=== PATIENT | female | born 1970 | race Caucasian/White ===

== ENCOUNTER → 2016-12-28 11:21 | Outpatient (CLI) | payer MEDICAID ==
[~2016-12-28] VITALS: Ht 152.4 cm; Wt 59.1 kg
--- NOTE | ~2016-12-28 | HEMODYNAMI ---
PATIENT:ALF FARRAR MEDICAL RECORD: [id number] : 68 LOCATION:[facility] ADMISSION DATE: 12/28/16 Generatedon:12/28/201615:21 Patient name: ALF FARRAR Patient #: [id number] SSN: : 1970 Date of study: 12/28/2016 Page: Of Hemodynamic Procedure Report Patient Data Patient Demographics Procedure consent was obtained First Name: ALF Gender: Female Last Name: CHARAN : 1970 Patient #: [id number] Age: 46 year(s) Race: Unknown Additional ID: [id number] Contact details [address]: [address] [place] [address] State: [place] City: [place] Zip code: [address] Past Medical History Allergies Allergen Reaction Date Comments Reported Other allergy 12/28/2016 PCN Admission Admission Data Admission Date: 12/28/2016 Admission Time: 11:21 Height (in.): 62 BSA: 1.6 (m2) Height (cm.): 157.48 BMI: 23.96 (kg/m2) Weight (lbs.): 131 Weight (kg.): 59.42 Procedure Procedure Types Cath Procedure Diagnostic Procedure C [facility] w/Coronaries PCI Procedure Coronary Stent Initial Miscellaneous Procedures Moderate Sedation up to 15 minutes Peripheral Cath Diagnostic Procedure Cath Peripheral Sldwg-Wouqyfc-Wmu-Off Procedure Description Procedure Date Procedure Date: 12/28/2016 Procedure Start Time: 14:57 Procedure End Time: 15:20 Procedure Staff Name Function Sukhdev Vidal MD Performing Physician Joie Acosta RT Scrub Jenn Lui RN Nurse Elana Ndiaye RT Monitor Procedure Data Cath Procedure Fluoroscopy Diagnostic fluoroscopy Total fluoroscopy Time: 4.9 time: 4.9 min min Diagnostic fluoroscopy Total fluoroscopy dose: 538 dose: 538 mGy mGy Contrast Material Contrast Material Type Amount (ml) Isovue 300 217 Entry Location Entry Primary Successful Side Size Upsize Upsize Entry Closure Succes sful Closure Location (Fr) 1 (Fr) 2 (Fr) Remarks Device Remarks Femoral Right 5 Fr 6 Fr Exoseal artery Short Estimated blood loss: 10 ml Diagnostic catheters Device Type Used For End Catheter Placement Cordis 5Fr JL 4.0 Procedure Catheter (MP) Cordis 5Fr 3DRC Catheter Procedure (MP) Cordis 5Fr Pigtail Ventriculography Catheter (MP) Procedure Complications No complications Procedure Medications Medication Administration Route Dosage Oxygen NC 2 l/min Heparin Flush Bag added to field 2 bags (1000units/500ml NS) Lidocaine 2% added to field 20 Fentanyl I.V. 50 mcg Versed I.V. 1 mg Fentanyl I.V. 25 mcg Versed I.V. 0.5 mg Fentanyl I.V. 25 mcg Versed I.V. 0.5 mg Fentanyl I.V. 50 mcg Versed I.V. 1 mg Fentanyl I.V. 50 mcg Versed I.V. 1 mg Versed I.V. 1 mg Versed I.V. 0.5 mg Versed I.V. 0.5 mg Heparin Bolus I.V. 4000 units Hemodynamics Rest BSA: 1.6 (m2) O2 Consumption: Estimated: 161.84 (ml/min) O2 Consumption indexed: Estimated:101.15 (ml/min/m) Heart Rate: 76 (bpm) Pressure Samples Time Site Value (mmHg) Purpose Heart Use Rate(bpm) 15:03 LV 124/8,10 Snapshot 90 15:03 LV 86/-38,-11 EDP 84 15:04 AO 109/61(83) Pullback 86 15:04 LV 114/11,14 Pullback 86 Gradients Valve Time Site 1 Site 2 Mean SEP/DFP Peak To Heart Use (mmHg) (sec/min) Peak Rate (mmHg) (bpm) Aortic 15:04 LV AO 10 11 5 86 114/11,14 109/61(83) Calculations Valve P-P Mean Valve Index Valve Source Name Gradient Area Flow (cm2) Aortic 5 10 5 10 Snapshots Pre Cath Intra NCS Post Cath Vital Signs Time Heart Resp SPO2 NIBP (mmHg) Rhythm Pain Sedation Rate (ipm) (%) Status Level (bpm) 14:40:56 76 16 100 144/76(116) NSR 0 (11) 10(A) , No pain 14:45:12 77 17 100 141/73(108) NSR 0 (11) 10(A) , No pain 14:49:24 84 18 99 125/69(103) NSR 0 (11) 9(A) , No pain 14:53:30 80 16 99 123/79(101) NSR 0 (11) 9(A) , No pain 14:57:40 72 10 99 120/65(84) NSR 0 (11) 9(A) , No pain 15:01:50 78 22 97 118/63(91) NSR 0 (11) 9(A) , No pain 15:06:00 93 16 98 115/64(85) NSR 0 (11) 9(A) , No pain 15:10:08 90 26 99 115/59(84) NSR 0 (11) 9(A) , No pain 15:14:18 87 16 99 103/57(82) NSR 0 (11) 9(A) , No pain 15:19:17 73 17 99 135/65(91) NSR 0 (11) 9(A) , No pain Medications Time Medication Route Dose Verified Delivered Reason Notes Effectiveness by by 14:42:23 Oxygen NC 2 Jenn Jenn used for l/min Lui Lui quality control coordinator RN 14:42:31 Heparin Flush added 2 Jenn Jenn used for Bag to bags Lui Lui procedure (1000units/500ml RN RN NS) 14:42:38 Lidocaine 2% added 20ml Jenn Jenn used for to vial Lui Lui procedure RN RN 14:46:15 Fentanyl I.V. 50 Jenn Jenn for sedation mcg Hu Lui RN RN 14:46:24 Versed I.V. 1 mg Jenn Jenn for sedation Hu Lui RN RN 14:48:20 Fentanyl I.V. 25 Jenn Jenn for sedation mcg Hu Lui RN RN 14:48:26 Versed I.V. 0.5 Jenn Ejnn for sedation mg Hu Lui RN RN 14:50:53 Fentanyl I.V. 25 Jenn Jenn for sedation mcg Hu Lui RN RN 14:50:56 Versed I.V. 0.5 Jenn Jenn for sedation mg Hu Lui RN RN 14:55:39 Fentanyl I.V. 50 Jenn Jenn for sedation mcg Hu Lui RN RN 14:55:43 Versed I.V. 1 mg Jenn Jenn for sedation Hu Lui RN, RN 14:58:59 Fentanyl I.V. 50 Jenn Jenn for sedation mcg Hu Lui RN RN 14:59:02 Versed I.V. 1 mg Jenn Jenn for sedation Hu Lui RN RN 15:01:12 Versed I.V. 1 mg Jenn Jenn for sedation Hu Lui RN RN 15:07:29 Versed I.V. 0.5 Jenn Jenn for sedation mg Hu Lui RN RN 15:11:47 Versed I.V. 0.5 Jenn Jenn for sedation mg Hu Lui RN RN 15:12:39 Heparin Bolus I.V. 4000 Jenn Jenn for units Hu Lui anticoagulation RN mill oiler Log Time Note 14:31:28 Patient Height : 157.48 cm 14:31:34 Patient Weight : 59.42 kg 14:32:06 Diagnostic Cath status Elective 14:32:09 Jenn Lui RN sent for patient. Start room use. 14:32:11 Time tracking: Regular hours 14:32:17 Plan of Care:Hemodynamics will remain stable., Cardiac rhythm will remain stable., Comfort level will be maintained., Respiratory function will remain adequate., Patient/ family verbilizes understanding of procedure., Procedure tolerated without complication., Recovers from procedure without complications.. 14:32:25 Patient received from Pre/Post Procedure Room to [facility] 2 Alert and oriented. Tansferred to table in Supine position. 14:32:26 Warm blankets applied, and amarilis hugger turned on for patient comfort. 14:32:27 Correct patient and procedure confirmed by team. 14:32:30 Signed procedure consent form obtained from patient. 14:32:43 H&P Date Dictated: 11/26/2016 Within 30 days and on chart., H&P Addendum completed by physician on day of procedure. (MUST COMPLETE FOR ALL OUTPATIENTS). 14:32:46 Pre-procedure instructions explained to patient. 14:32:49 Family in waiting room. 14:32:51 Patient NPO since Midnight. 14:33:07 Patient allergic to Other allergyPCN 14:39:50 ECG and BP/O2 sat monitors applied to patient. 14:39:50 Vital chart was started 14:39:54 Baseline sample Acquired. 14:39:58 Rhythm: sinus rhythm 14:39:59 Full Disclosure recording started 14:40:14 Is the patient allergic to Iodine/contrast media? No. 14:40:15 Is patient on blood thinner?Yes 14:40:18 ACC The patient was administered the following blood thiners within the last 24 hours: ACCAspirin, ACCPlavix 14:40:21 Patient diabetic? No. 14:40:27 Snore? Yes 14:40:28 Sleep apnea? No 14:40:34 Dentures? No ? 14:40:40 Patient pain scale 0/10 ?. 14:40:46 IV patent on arrival in left hand with 0.9% NaCl at [facility]. 14:40:53 Lab results completed and on chart. 14:40:56 Right groin area was prepped with chlora-prep and draped in sterile fashion 14:41:04 Alarms reviewed by RMorro N. 14:41:05 Sharps counted by scrub and verified by R.N. 14:41:06 Physician paged 14:41:10 Physician arrived 14:41:58 Use device set Femoral Dx 14:42:00 Acist Syringe opened to sterile field. 14:42:00 Bag Decanter opened to sterile field. 14:42:00 Medline Cath Pack opened to sterile field. 14:42:01 Terumo 5Fr [place] Sheath opened to sterile field. 14:42:01 St Oleg 260cm J .035 wire opened to sterile field. 14:42:03 Acist Hand Control opened to sterile field. 14:42:03 Acist Manifold opened to sterile field. 14:42:03 Diagnostic Infinity 5Fr Multipack catheter opened to sterile field. 14:42:04 Tegaderm 4 x 4 opened to sterile field. 14:42:23 Oxygen 2 l/min NC was administered by Jenn Lui RN; used for procedure; 14:42:31 Heparin Flush Bag (1000units/500ml NS) 2 bags added to field was administered by Jenn Lui RN; used for procedure; 14:42:38 Lidocaine 2% 20ml vial added to field was administered by Jenn Lui RN; used for procedure; 14:46:01 --------ALL STOP TIME OUT------ 14:46:02 Final Timeout: patient, procedure, and site verified with staff and physician. All members of the team are in agreement. 14:46:07 Bilateral groins site verified by team. 14:46:11 Physical assessment completed. ASA score P 2 - A patient with mild systemic disease as per Sukhdev Vidal MD. 14:46:14 Sedation plan: IV Moderate Sedation Versed, Fentanyl 14:46:15 Fentanyl 50 mcg I.V. was administered by Jennleilani Lui RN; for sedation; 14:46:24 Versed 1 mg I.V. was administered by Jennleilani Lui RN; for sedation; 14:48:20 Fentanyl 25 mcg I.V. was administered by Jennleilani Lui RN; for sedation; 14:48:26 Versed 0.5 mg I.V. was administered by Jennleilani Lui RN; for sedation; 14:50:53 Fentanyl 25 mcg I.V. was administered by Jennleilani Lui RN; for sedation; 14:50:56 Versed 0.5 mg I.V. was administered by Jennleilani Lui RN; for sedation; 14:55:39 Fentanyl 50 mcg I.V. was administered by Jennleilani Lui RN; for sedation; 14:55:43 Versed 1 mg I.V. was administered by Jennleilani Lui RN; for sedation; 14:57:38 Procedure started. 14:57:42 Local anesthetic to right femoral artery with Lidocaine 2% by Sukhdev Vidal MD.INITIAL ACCESS ONLY 14:57:51 A 5 Fr sheath was inserted into the Right Femoral artery 14:58:59 Fentanyl 50 mcg I.V. was administered by Jenn Lui RN; for sedation; 14:59:02 Versed 1 mg I.V. was administered by Jennleilani Lui RN; for sedation; 14:59:46 J wire advanced. 15:00:06 A Cordis 5Fr JL 4.0 Catheter (MP) was advanced over the wire and used for Procedure. 15:00:10 LCA angiography performed. 15:01:04 Catheter removed. 15:01:12 Versed 1 mg I.V. was administered by Jennleilani Lui RN; for sedation; 15:01:13 A Cordis 5Fr 3DRC Catheter (MP) was advanced over the wire and used for Procedure. 15:02:19 RCA angiography performed. 15:02:36 Catheter removed. 15:02:46 A Cordis 5Fr Pigtail Catheter (MP) was advanced over the wire and used for Ventriculography. 15:03:08 LV angiography performed. 15:04:16 EF : 55 % 15:07:29 Versed 0.5 mg I.V. was administered by Jenn Lui RN; for sedation; 15:07:30 Abdominal angiogram w/ runoff was performed. 15:07:35 Right leg runoff performed. 15:07:37 Left leg runoff performed. 15:10:37 Catheter removed. 15:11:43 Terumo 6Fr [place] Sheath opened to sterile field. 15:11:44 Biocartis BasixCompak Inflation Kit opened to sterile field. 15:11:45 Medtronic Launcher 6Fr AR 1.0 SH guide catheter opened to sterile field. 15:11:45 Pratt Whisper J 300cm 0.014 guide wire opened to sterile field. 15:11:47 Versed 0.5 mg I.V. was administered by Jenn Lui RN; for sedation; 15:11:48 Proceeding to intervention. 15:12:02 Sheath upsized to a 6 Fr Short. 15:12:16 6 Fr AR1 guide catheter was inserted over the wire 15:12:20 whis wire advanced. 15:12:39 Heparin Bolus 4000 units I.V. was administered by Jenn Lui RN; for anticoagulation; 15:12:39 Wire advanced across lesion. 15:15:03 Inflation Number: 1 A Medtronic Integrity 3.0 X 26 stent was prepped and advanced across the Mid RCA. The stent was deployed at 14 TOMAS for 0:30 (min:sec). 15:16:46 Cordis 6Fr Exoseal opened to sterile field. 15:16:51 Wire removed. 15:16:52 Guide catheter removed. 15:17:04 Sheath removed intact; hemostasis achieved with Exoseal to the Right Femoral artery. 15:17:08 Procedure ended.(Physican Out) 15:18:35 Fluoroscopy time 04.90 minutes. 15:18:42 Fluoroscopy dose: 538 mGy 15:18:42 Flurop Dose total: 538 15:18:47 Contrast amount:Isovue 300 217ml. 15:18:48 Sharps counted by scrub and verified by R.N. 15:18:55 Insertion/operative site no bleeding no hematoma. 15:19:00 Post-op/insertion site Right Femoral artery dressed using a 4 x 4 and Tegaderm. 15:19:06 Post Procedure Pulses reassessed and unchanged 15:19:12 Post-procedure physical assessment completed. ASA score P 2 - A patient with mild systemic disease as per Sukhdev Vidal MD. 15:19:16 Post procedure rhythm: unchanged. 15:19:20 Estimated blood loss: 10 ml 15:19:21 Post procedure instruction explained to patient.Patient verbalizes understanding. 15:19:40 Procedure type changed to Cath procedure, Diagnostic procedure, LHC, LHC w/Coronaries, PCI procedure, Coronary Stent Initial, Miscellaneous Procedures, Moderate Sedation up to 15 minutes, Peripheral Cath Diagnostic Procedure, Cath Peripheral, Nmdkt-Dwxidgn-Vda-Off 15:19:46 Procedure and supply charges have been captured, reviewed, submitted and are correct. 15:20:13 Procedure Complication : No complications 15:20:19 Vital chart was stopped 15:20:19 See physician's report for complete and final results. 15:20:21 Report given to Pre/Post Procedure Room. 15:20:26 Patient transfered to Pre/Post Procedure Room with Stretcher. 15:20:28 Procedure ended. 15:20:28 Full Disclosure recording stopped 15:20:33 End room use (Document Last) Intervention Summary Intervention Notes Time ActionType Lesion and Equipment Action# Pressure Duration Attributes Used 15:15:03 Place stent Mid RCA Medtronic 1 14 00:30 Integrity 3.0 X 26 stent Device Usage Item Name Manufacture Quantity Catalog Hospital Part Current Minimal L ot# / Number Charge Number Stock Stock Serial# Code Acist Acist 1 54048 [id number] 275872 831060 20 Syringe Medical Systems Inc Bag Microtek 1 2002S 875485 72533 082982 5 DecKickanotch mobile Inc. Medline Cardinal 1 [id number] 787466 96725 448780 5 Cath Luminescent Terumo 5Fr Terumo 1 BCQ485 888693 452502 724159 [address] Oleg St Oleg 1 975283 751886 180488 567833 30 260cm J .035 wire Acist Hand Acist 1 98682 274940 718802 736138 5 Control Medical Systems Inc Acist Acist 1 75776 891409 173026 986280 5 Manifold Medical Systems Inc Diagnostic Cardinal 1 [id number] 357988 05447 022877 30 Infinity Health 5Fr Multipack catheter Tegaderm 4 3M 1 1626W 018608 531659 419128 5 x 4 Cordis 5Fr Cardinal 1 475225 5 JL 4.0 Health Catheter (MP) Cordis 5Fr Cardinal 1 441786 5 3DRC Health Catheter (MP) Cordis 5Fr Cardinal 1 488690 5 Pigtail Health Catheter (MP) Terumo 6Fr Terumo 1 UEH361 360056 727953 625624 40 [place] Sheath Merit Merit 1 [id number] 099984 020418 471762 15 [employer] Ltd.ixHF Food TechnologiesnvBillGuard Medical Inflation Kit Medtronic Medtronic 1 [id number] 725009 65520 974455 1 Launcher 6Fr AR 1.0 SH guide catheter Pratt Pratt 1 [id number] 097151 788052 701500 5 Whisper J Vascular 300cm 0.014 guide wire Medtronic Medtronic 1 [id number] 575748 223530 1 0 [id number] Integrity 3.0 X 26 stent Cordis 6Fr Cardinal 1 EX600 378710 898025 656119 10 [facility] FriendCode Signature Audit [place] Stage Time Signature Unsigned Intra-Procedure 12/28/2016 Elana Ndiaye 3:21:26 PM RT(R) Signatures Monitor : Elana Ndiaye Signature : RT Date : Time : [address] [place] [address]
[~2016-12-28 11:21] MED LIST: BAYER CHEWABLE81 MG PO; CHANTIX 1 MG TAB1 MG PO; KLONOPIN0.5 MG PO; LIPITOR80 MG PO; PLAVIX75 MG PO; POTASSIUM99 M1 PO; ZOLOFT50 MG PO
[2016-12-28 11:52] VITALS: BP 136/56; Ht 152.4 cm; Wt 59.1 kg
[2016-12-28 12:39] LABS: BASOPHILS 0.3 % (0-2); EOSINOPHILS 0.4 % (0-7); HEMOGLOBIN 13.2 g/dL (12-16); IMMATURE GRANULOCYTES 0.1 % (0-5); LYMPHOCYTES 31.7 % (15-50); MCH 30.8 pg (26.0-34.0); MCHC 34.7 g/dL (31.0-37.0); MCV 88.8 fL (80.0-100.0); MEAN PLATELET VOLUME 10.8 fL (7.4-10.4); MONOCYTES 9.6 % (2-11); NEUTROPHILS 57.9 % (40-80); PLATELET COUNT 195 10x3/uL (130-400); RBC 4.28 10x6/uL (4.00-5.40); RDW 13.6 % (11.5-14.5); WBC 6.9 10x3/uL (4.8-10.8)
[2016-12-28 13:03] LABS: CALC OSMOLALITY 273 mosm/kg (275-300); CALCIUM 9.2 mg/dL (8.5-10.1); CARBON DIOXIDE 26.7 mmol/L (21.0-32.0); CHLORIDE - SERUM 101 mmol/L (98-107); CREATININE - SERUM 0.6 mg/dL (0.6-1.3); GLUCOSE 92 mg/dL (74-106); POTASSIUM - SERUM 3.5 mmol/L (3.5-5.1); SODIUM 138 mmol/L (136-145); UREA NITROGEN 6 mg/dL (7-18); eGFR NON AFRICAN AMERICAN > 90 mL/min (90-120)
--- NOTE | 2016-12-28 15:45 | NUR ---
RIGHT GROIN CDI, NO HEMATOMA OR BLEEDING AT SITE, SOFT TO TOUCH, FRIEND AT SIDE.
--- NOTE | 2016-12-28 16:15 | NUR ---
NO CHANGES IN ASSESSMENT, DENIES PAIN.
--- NOTE | 2016-12-28 19:30 | NUR ---
D'C HOME WITH FAMILY, DENIES PAIN OR FURTHUR NEEDS
--- NOTE | 2016-12-29 13:55 | OP ---
PATIENT NAME: ALF FARRAR MEDICAL RECORD: [id number] :68 LOCATION:[facility] ADMISSION DATE: SURGEON: VANITA VILLALOBOS MD DATE OF OPERATION: 12/28/2016 PROCEDURE: Left heart catheterization, selective coronary angiography, stent to the right and AFRO, right femoral artery approach. CATHETERS: A 5-Moldovan sheath, 5/4 left and right Renetta. FINDINGS: Left ventriculography in 30-degree FELIX view: Normal wall motion, normal systolic function. CORONARY ANATOMY: LEFT MAIN: Left main is free of disease. LAD: Free of disease in the diagonal system. CIRCUMFLEX: Free of disease in the marginal system. RIGHT CORONARY ARTERY: Has an elongated 80% stenosis in its mid portion. The catheter was pulled at the level of the renal arteries. Left renal artery shows a 50% stenosis. Right renal artery shows luminal irregularities. LEFT LOWER EXTREMITY: The left iliac shows probably about a 70% stenosis just after the bifurcation and above the previously placed iliac stent. Femoral system itself has luminal irregularities and a widely patent stent. The right iliac is patent. Right superficial femoral artery shows no significant stenosis with a good 3-vessel runoff on the right. PLAN: Intervention to the right coronary. DESCRIPTION OF PROCEDURE: A 5-Moldovan sheath was exchanged for a 6-Moldovan sheath. An AR1 guide catheter with side holes provided good catheter support followed by 300 cm Whisper wire, which was placed across the tightly occluded right down this portion of vessel. Stent deployed was a 3.0 x 26 mm Integrity nondrug-eluting stent up to 14 atmospheres for 45 seconds. Final injection shows excellent resolution of a diffuse 80% stenosis, no significant residual. Nice pumping of the distal vasculature. The patient was previously on Plavix. Heparin was given in the lab. Sheath was closed with ExoSeal device. TRANSINT:[id number] Voice Confirmation ID: [id number] DOCUMENT ID: [id number] OPERATIVE REPORT [id number] CHARANREYMUNDOALFVANITA MCRAE MD at 1355 CC: [id number] DICTATION DATE: 12/28/16 1529 PORTFOLIO CONSULTANT: 12/28/16 2238 DEP CLI 12/28/16 [address] [place] [address]
== END | disposition home or self-care (01) ==
LOC: D.CATH 11:21
PROVIDERS: Internal Medicine Interventional Cardiology
DX: I20.9 Angina pectoris, unspecified (principal); I70.213 Atherosclerosis of native arteries of extremities with intermittent claudication, bilateral legs; F17.200 Nicotine dependence, unspecified, uncomplicated; E78.5 Hyperlipidemia, unspecified; Z01.812 Encounter for preprocedural laboratory examination

== ENCOUNTER → 2017-03-28 18:17 | Outpatient (CLI) | payer MEDICAID ==
[2016-12-28 11:52] VITALS: BMI 25.4
== END | disposition home or self-care (01) ==
LOC: D.MAMMO 11:00
DX: Z12.31 Encounter for screening mammogram for malignant neoplasm of breast (principal)

== ENCOUNTER → 2017-04-05 08:16 | Outpatient (CLI) | payer MEDICAID ==
[2016-12-28 11:52] VITALS: BMI 25.4
== END | disposition home or self-care (01) ==
LOC: D.CT 08:16
DX: R93.8 Abnormal findings on diagnostic imaging of other specified body structures (principal)

== ENCOUNTER → 2018-05-14 09:40 | Outpatient (CLI) | payer MEDICARE ==
[2016-12-28 11:52] VITALS: BMI 25.4
[~2018-05-14 09:40] MED LIST changes: +ATIVAN1 MG PO; +HCTZ25 MG PO; +OXYBUTYNIN CHLOR5 MG PO
--- NOTE | 2018-05-16 16:39 | ST ---
PATIENT:ALF FARRAR MEDICAL RECORD: [id number] SEX: F LOCATION:[facility] ORDER #: ADMISSION DATE: 05/14/18 AGE OF PATIENT: 47 REFERRING PHYSICIAN: INTERPRETING PHYSICIAN: VIOLETA LEMUS MD DATE OF SERVICE: 05/14/2018 PROCEDURE: Nuclear Stress Test. INDICATION: Angina, hypertension, hyperlipidemia, coronary artery disease that was pharmacologic. The patient was exercised on standard Lexiscan protocol with 30 mCi of sestamibi injected at peak stress, 10 mCi used previously for rest images. FINDINGS: Gated SPECT reveals preserved ejection fraction at 60% with good wall motioning and thickening and brightening throughout all segments. SPECT imaging: Cardiolite was used as myocardial perfusion agent. There is reversibility anteriorly and apically. This includes the basal, mid apical, anterior segments as well as the apex itself. The degree of reversibility is mild to moderate. The amount of myocardium involved is moderate. OVERALL IMPRESSION: This is an abnormal nuclear stress test. Moderate reversible ischemia anteriorly and apically suggestive of hemodynamically significant coronary artery disease. We will proceed with coronary angiography as followup study. TRANSINT:[id number] Voice Confirmation ID: [id number] DOCUMENT ID: [id number] VIOLETA LEMUS MD at 1639 CC: [id number] DICTATION DATE: 05/15/18 1604 YOGHURT MAKER: 05/16/18 0733 DEP CLI 05/14/18 [id number] [place] [address]
== END | disposition home or self-care (01) ==
LOC: D.HCCARDIO 09:40
DX: I25.119 Atherosclerotic heart disease of native coronary artery with unspecified angina pectoris (principal); I10 Essential (primary) hypertension; E78.5 Hyperlipidemia, unspecified

== ENCOUNTER 2018-05-24 10:46 | Outpatient (CLI) | payer MEDICARE ==
[~2018-05-24] VITALS: Ht 152.4 cm; Wt 59.1 kg
--- NOTE | ~2018-05-24 | HEMODYNAMI ---
PATIENT:ALF FARRAR MEDICAL RECORD: [id number] : 68 LOCATION:[facility]LEX ADMISSION DATE: 05/24/18 Generatedon:05/24/201815:21 Patient name: ALF FARRAR Patient #: [id number] SSN: : 1970 Date of study: 05/24/2018 Page: Of Hemodynamic Procedure Report Patient Data Patient Demographics Procedure consent was obtained First Name: ALF Gender: Female Last Name: CHARAN : 1970 Patient #: [id number] Age: 47 year(s) Race: Unknown Additional ID: [id number] Contact details Address: [address] [place] [address] State: [place] City: [place] Zip code: [address] Past Medical History Allergies Allergen Reaction Date Comments Reported Other allergy 12/28/2016 PCN Other allergy 05/24/2018 PCN Admission Admission Data Admission Date: 05/24/2018 Admission Time: 10:46 Height (in.): 5 BSA: 0.26 (m2) Height (cm.): 12.7 BMI: 3627.84 (kg/m2) Weight (lbs.): 129 Weight (kg.): 58.51 Procedure Procedure Types Cath Procedure Diagnostic Procedure [facility] w/Coronaries PCI Procedure Coronary Stent Coronary Stent Initial Peripheral Cath Diagnostic Procedure Tube Teller Peripheral Procedures Ojgwn-Mcncbsp-Abk-Off Procedure Description Procedure Date Procedure Date: 05/24/2018 Procedure Start Time: 14:52 Procedure End Time: 15:19 Procedure Staff Name Function Sukhdev Fontenot MD Performing Physician Alex Oneill RT Monitor Natalie Juarez RT Scrub Homa Eng RN Nurse Eric Major RN Carrot Buncher Procedure Data Cath Procedure Fluoroscopy Diagnostic fluoroscopy Total fluoroscopy Time: 3.1 time: 3.1 min min Diagnostic fluoroscopy Total fluoroscopy dose: 329 dose: 329 mGy mGy Contrast Material Contrast Material Type Amount (ml) Isovue 300 128 Entry Location Entry Primary Successful Side Size Upsize Upsize Entry Closure Shaikh ccessful Closure Location (Fr) 1 (Fr) 2 (Fr) Remarks Device Remarks Femoral Right 5 Fr Manual vein Compression Femoral Left 5 Fr 6 Fr Exoseal artery Short Diagnostic catheters Device Type Used For End Catheter Placement MULTIPACK JL 4.0 5Fr Left Coronary catheter Angiography MULTIPACK 3DRC 5Fr Right Coronary catheter Angiography MULTIPACK Pigtail 5 Fr LV Angiography catheter Procedure Complications No complications Procedure Medications Medication Administration Route Dosage 0.9% NaCl I.V. 100 ml/hr Oxygen etCO2 Nasal cannula 2 l/min Lidocaine 2% added to field 20 Heparin Flush Bag added to field 2 bags (1000units/500ml NS) Versed I.V. 2 mg Fentanyl I.V. 100 mcg Versed I.V. 2 mg Fentanyl I.V. 100 mcg Versed I.V. 2 mg Fentanyl I.V. 100 mcg Versed I.V. 2 mg Hemodynamics Rest BSA: 0.26 (m2) O2 Consumption: Estimated: 26.47 (ml/min) O2 Consumption indexed: Estimated:101.81 (ml/min/m) Heart Rate: 78 (bpm) Pressure Samples Time Site Value (mmHg) Purpose Heart Use Rate(bpm) 15:04 LV 146/23,31 EDP 82 Gradients Valve Time Site Site Mean SEP/DFP Peak To Heart Use 1 2 (mmHg) (sec/min) Peak Rate (mmHg) (bpm) Aortic 15:04 LV AO 80 Snapshots Pre Cath Intra NCS Post Cath Vital Signs Time Heart Resp SPO2 etCO2 NIBP (mmHg) Rhythm Pain Sedation Rate (ipm) (%) (mmHg) Status Level (bpm) 14:24:31 71 12 100 27 146/76(112) NSR 0 (11) 10(A) , No pain 14:28:43 73 12 100 36.8 119/81(109) NSR 0 (11) 10(A) , No pain 14:33:01 78 20 98 21.8 117/61(105) NSR 0 (11) 10(A) , No pain 14:37:09 77 14 99 25.5 123/77(99) NSR 0 (11) 10(A) , No pain 14:41:14 82 15 99 28.5 140/84(105) NSR 0 (11) 10(A) , No pain 14:45:26 70 11 99 32.3 128/59(103) NSR 0 (11) 10(A) , No pain 14:49:37 73 12 99 33 126/80(109) NSR 0 (11) 10(A) , No pain 14:53:48 80 13 100 35.3 123/75(102) NSR 0 (11) 10(A) , No pain 14:58:00 68 16 98 44.3 106/67(86) NSR 0 (11) 10(A) , No pain 15:02:00 80 10 96 36.8 117/87(105) NSR 0 (11) 10(A) , No pain 15:06:49 87 12 97 49.6 154/96(122) NSR 0 (11) 10(A) , No pain 15:10:58 80 14 96 43.5 136/85(110) NSR 0 (11) 9(A) , No pain 15:15:12 82 10 96 38.3 118/75(99) NSR 0 (11) 10(A) , No pain Medications Time Medication Route Dose Verified Delivered Reason Notes Eff ectiveness by by 14:23:34 0.9% NaCl I.V. 100 Sukhdev Homa used for ml/hr Po Velasquez procedure MD MYERS 14:23:41 Oxygen etCO2 2 Sukhdev Homa used for Nasal l/min Po Velasquez procedure cannula RN 14:23:50 Lidocaine 2% added 20ml Sukhdev Sukhdev for local to vial [facility] anesthetic field MD CASE 14:23:55 Heparin Flush added 2 Sukhdev Sukhdev used for Bag to bags [facility] procedure (1000units/500ml field MD CASE NS) 14:53:39 Versed I.V. 2 mg Sukhdev Homa for Po Velasquez sedation RN 14:53:48 Fentanyl I.V. 100 Sukhdev Homa for mcg Po Velasquez sedation MD MYERS 14:58:26 Versed I.V. 2 mg Sukhdev Homa for Po Velasquez sedation MD MYERS 14:58:31 Fentanyl I.V. 100 Sukhdev Homa for mcg Po Velasquez sedation MD MYERS 15:03:38 Versed I.V. 2 mg Sukhdev Homa for Po Velasquez sedation MD MYERS 15:03:46 Fentanyl I.V. 100 Sukhdev Homa for mcg Po Velasquez sedation MD MYERS 15:09:25 Versed I.V. 2 mg Sukhdev Pierce sedation feed mill operator Log Time Note 14:10:30 Eric Major RN sent for patient. Start room use. 14:15:45 Patient Height : 5 inches 14:15:45 Patient Weight : 129 lbs 14:17:27 Signed procedure consent form obtained from patient. 14:17:28 Diagnostic Cath status Elective 14:17:40 Time tracking: Regular hours (M-F 7:00 - 5:00) 14:17:44 Plan of Care:Hemodynamics will remain stable., Cardiac rhythm will remain stable., Comfort level will be maintained., Respiratory function will remain adequate., Patient/ family verbilizes understanding of procedure., Procedure tolerated without complication., Recovers from procedure without complications.. 14:17:54 H&P Date Dictated: 05/08/2018 Within 30 days and on chart., H&P Addendum completed by physician on day of procedure. (MUST COMPLETE FOR ALL OUTPATIENTS). 14:18:10 Patient allergic to Other allergyPCN 14:23:27 Vital chart was started 14:23:34 0.9% NaCl 100 ml/hr I.V. was administered by Homa Eng RN; used for procedure; 14:23:41 Oxygen 2 l/min etCO2 Nasal cannula was administered by Homa Eng RN; used for procedure; 14:23:50 Lidocaine 2% 20ml vial added to field was administered by Sukhdev Fontenot MD; for local anesthetic; 14:23:55 Heparin Flush Bag (1000units/500ml NS) 2 bags added to field was administered by Sukhdev Fontenot MD; used for procedure; 14:31:51 Patient received from Pre/Post Procedure Room to CCL 1 Alert and oriented. Tansferred to table in Supine position. 14:31:53 Warm blankets applied, and amarilis hugger turned on for patient comfort. 14:31:53 Correct patient and procedure confirmed by team. 14:31:54 ECG and BP/O2 sat monitors applied to patient. 14:31:55 Baseline sample Acquired. 14:31:59 Rhythm: sinus rhythm 14:32:01 Full Disclosure recording started 14:32:02 Pre-procedure instructions explained to patient. 14:32:02 Pre-op teaching completed and patient verbalized understanding. 14:32:05 Family in waiting room. 14:32:06 Patient NPO since Midnight. 14:32:11 Is the patient allergic to Iodine/contrast media? No. 14:32:13 Is patient on blood thinner?Yes 14:32:16 ACC The patient was administered the following blood thiners within the last 24 hours: ACCPlavix 14:32:21 Patient diabetic? No. 14:32:23 ----Pre-sedation anethsthesia assessment.---- 14:32:26 Previous problem with sedation/anesthesia? No ? 14:32:29 Snore? Yes 14:32:32 Sleep apnea? No 14:32:34 Deviated septum? No 14:32:36 Opens mouth fully? Yes 14:32:37 Sticks out tongue? Yes 14:32:45 Airway obstruction? Yes COPD 14:32:57 Dentures? Yes IN TIGHT 14:33:06 Pre procedure: right dorsailis pedis pulse 1+ Palpable, but thready & weak; easily obliterated 14:33:11 Pre procedure: left dorsailis pedis pulse 1+ Palpable, but thready & weak; easily obliterated 14:33:14 Patient pain scale 0/10 ?. 14:33:20 Lab results completed and on chart. 14:33:30 Bilateral groins area was prepped with chlora-prep and draped in sterile fashion 14:33:31 Alarms reviewed by R. N. 14:33:31 Sharps counted by scrub and verified by R.N. 14:51:01 Physician arrived 14:51:01 --------ALL STOP TIME OUT------ 14:51:02 Final Timeout: patient, procedure, and site verified with staff and physician. All members of the team are in agreement. 14:51:03 Bilateral groins site verified by team. 14:51:06 Physical assessment completed. ASA score P 2 - A patient with mild systemic disease as per Sukhdev Fontenot MD. 14:51:09 Sedation plan: IV Moderate Sedation Medication:Versed, Fentanyl 14:51:15 Use device set Femoral Dx 14:51:16 ACIST Syringe (26941) opened to sterile field. 14:51:16 Bag Decanter (2002S) opened to sterile field. 14:51:17 Medline Cath Pack ([id number]) opened to sterile field. 14:51:17 DIAGNOSTIC WIRE .035 260cm J wire (156637) opened to sterile field. 14:51:19 ACIST Hand Control (99328) opened to sterile field. 14:51:20 ACIST Manifold (63489) opened to sterile field. 14:51:20 DIAGNOSTIC Multipack 5Fr catheter set (QJ3801) opened to sterile field. 14:51:21 Tegaderm 4 x 4 (1626W) opened to sterile field. 14:51:23 SHEATH 5FR Wanette (WUV406) opened to sterile field. 14:51:31 SHEATH 5FR Wanette (HDW859) opened to sterile field. 14:51:46 Procedure started. 14:52:10 Local anesthetic to right femoral vein with Lidocaine 2% by Sukhdev Fontenot MD.INITIAL ACCESS ONLY 14:52:27 A 5 Fr sheath was inserted into the Right Femoral vein 14:52:37 A 5 Fr sheath was inserted into the Left Femoral artery 14:53:39 Versed 2 mg I.V. was administered by Homa Eng RN; for sedation; 14:53:48 Fentanyl 100 mcg I.V. was administered by Homa Eng RN; for sedation; 14:58:25 Zero performed for pressure channel P1 14:58:26 Versed 2 mg I.V. was administered by Homa Eng RN; for sedation; 14:58:31 Fentanyl 100 mcg I.V. was administered by Homa Eng RN; for sedation; 15:01:08 A MULTIPACK JL 4.0 5Fr catheter was advanced over the wire and used for Left Coronary Angiography. 15:01:15 LCA angiography performed. 15:02:29 Catheter removed. 15:02:37 A MULTIPACK 3DRC 5Fr catheter was advanced over the wire and used for Right Coronary Angiography. 15:02:50 RCA angiography performed. 15:03:13 Catheter exchanged over wire. 15:03:38 Versed 2 mg I.V. was administered by Homa Eng RN; for sedation; 15:03:46 Fentanyl 100 mcg I.V. was administered by Homa Eng RN; for sedation; 15:03:51 A MULTIPACK Pigtail 5 Fr catheter was advanced over the wire and used for LV Angiography. 15:03:55 LV angiography performed. 15:04:05 LV gram done using FELIX 15:04:17 EF : 55 % 15:04:30 Abdominal angiogram w/ runoff was performed. 15:04:34 Right leg runoff performed. 15:04:35 Left leg runoff performed. 15:06:48 Catheter removed. 15:07:38 SHEATH 6FR Wanette (JFK966) opened to sterile field. 15:07:38 INFLATOR Merit BasixCompak (XT0297) opened to sterile field. 15:07:50 WHISPER 300cm guide wire ([id number]) opened to sterile field. 15:08:26 GUIDE 6FR JL 3.5 guide catheter ([id number]) opened to sterile field. 15:09:15 Sheath upsized to a 6 Fr Short. 15:09:25 Versed 2 mg I.V. was administered by Homa Eng RN; for sedation; 15:09:27 6 Fr JL 3.5 guide catheter was inserted over the wire 15:09:58 WHISPER wire advanced. 15:12:59 Place stent Inflation Number: 1 A INTEGRITY OTW 2.5 X 12 stent ([id number]) was prepped and advanced across the Lat ramus. The stent was deployed at 14 TOMAS for 0:28 (min:sec). 15:13:26 Stent catheter was removed intact over wire. 15:13:26 Wire removed. 15:13:27 Guide catheter removed. 15:13:35 Contrast amount:Isovue 300 128ml. 15:13:44 Sheath removed intact; hemostasis achieved with Exoseal to the Left Femoral artery. 15:13:52 EXOSEAL 6Fr (EX600) opened to sterile field. 15:13:59 Procedure ended.(Physican Out) 15:16:09 Fluoroscopy time 03.10 minutes. 15:16:16 Fluoroscopy dose: 329 mGy 15:16:16 Flurop Dose total: 329 15:16:18 Sharps counted by scrub and verified by R.N. 15:16:19 Insertion/operative site no bleeding no hematoma. 15:16:22 Post-op/insertion site Left Femoral artery dressed using a 4 x 4 and Tegaderm. 15:16:27 Post left femerol artery:stable 15:16:42 Sheath removed intact; hemostasis achieved with Manual Compression to the Right Femoral vein. 15:16:46 Post Procedure Pulses reassessed and unchanged 15:16:51 Post procedure: right dorsailis pedis pulse 2+ Normal; easily identifiable; not easily obliterated. 15:16:55 Post procedure rhythm: sinus rhythm 15:16:58 Post procedure instruction explained to patient.Patient verbalizes understanding. 15:17:00 Procedure and supply charges have been captured, reviewed, submitted and are correct. 15:17:25 Procedure type changed to Cath procedure, Diagnostic procedure, LHC, LHC w/Coronaries, PCI procedure, Coronary Stent, Coronary Stent Initial, Peripheral Cath Diagnostic Procedure, Tube Teller Peripheral Procedures, Figfz-Gvqzhfr-Rrp-Off 15:17:44 Procedure Complication : No complications 15:17:47 Vital chart was stopped 15:17:47 See physician's report for complete and final results. 15:18:56 Report given to Pre/Post Procedure Room. 15:19:00 Patient transfered to Pre/Post Procedure Room with Stretcher. 15:19:02 Procedure ended. 15:19:02 Full Disclosure recording stopped 15:19:07 End room use (Document Last) Intervention Summary Intervention Notes Time ActionType Lesion and Equipment Action# Pressure Duration Attributes Used 15:12:59 Place stent Lat ramus INTEGRITY 1 14 00:28 OTW 2.5 X 12 stent ([id number]) Device Usage Item Name Manufacture Quantity Catalog Hospital Part Current Minimal L ot# / Number Charge Number Stock Stock Serial# Code ACIST Acist 1 48943 033038 436498 158002 20 Syringe Medical (11833) Systems Inc Bag Microtek 1 2001S 853492 22663 743579 5 Decanter Medical Inc. () Medline Medline 1 [id number] 847644 59398 166979 5 Cath Pack ([id number]) DIAGNOSTIC St Oleg 1 204420 794400 064687 812090 30 WIRE .035 260cm J wire (016708) ACIST Hand Acist 1 61679 692863 213554 571605 5 Control Medical (69581) Systems Inc ACIST Acist 1 68749 538385 047808 165875 5 Manifold Medical (85258) Systems Inc DIAGNOSTIC Cardinal 1 OL3470 547342 24813 507097 30 AiMeiWei 5Fr catheter set (TS1737) Tegaderm 4 3M 1 1626W 896428 182303 392108 5 x 4 (1626W) SHEATH 5FR Terumo 2 NBX739 145992 449447 097230 5 Wanette (HXU410) MULTIPACK Cardinal 1 820392 5 JL 4.0 5Fr Health catheter MULTIPACK Cardinal 1 643740 5 3DRC 5Fr Health catheter MULTIPACK Cardinal 1 011242 5 Pigtail 5 Health Fr catheter SHEATH 6FR Terumo 1 TQM905 582731 130876 499434 40 Wanette (SIP969) INFLATOR Merit 1 YA4712 178615 157334 804955 15 [facility] Medical BasixCompak (KV6235) WHISPER Pratt 1 [id number] 824267 879287 246335 5 300cm guide Vascular wire (2399003NY) GUIDE 6FR Medtronic 1 WO7KJ87 731365 53385 369934 1 JL 3.5 guide catheter (BN5CW80) INTEGRITY Medtronic 1 [id number] 993047 867932 681936 3 0 [id number] OTW 2.5 X 12 stent ([id number]) EXOSEAL 6Fr Cardinal 1 EX600 958210 400238 016518 10 (EX600) Health Signature Audit [place] Stage Time Signature Unsigned Intra-Procedure 05/24/2018 Alex Oneill RT(Bakari) 3:20:58 PM Signatures Monitor : Alex Oneill RT Signature : Date : Time : [facility] [address] [place] [address]
[~2018-05-24 10:46] MED LIST changes: -ATIVAN1 MG PO; -HCTZ25 MG PO; -OXYBUTYNIN CHLOR5 MG PO
[2018-05-24] MEDS ORDERED: OXYBUTYNIN CHLOR5 MG PO (11:11)
[2018-05-24] MEDS ORDERED: HCTZ25 MG PO (11:11)
[2018-05-24] MEDS ORDERED: ATIVAN1 MG PO (11:12)
[2018-05-24 11:21] VITALS: BP 127/72; Ht 152.4 cm; Wt 59.1 kg
[2018-05-24 11:59] LABS: BASOPHILS 0.3 % (0-2); EOSINOPHILS 0.9 % (0-7); HEMATOCRIT 38.6 % (36.0-48.0); HEMOGLOBIN 13.9 g/dL (12-16); IMMATURE GRANULOCYTES 0.3 % (0-5); LYMPHOCYTES 29.4 % (15-50); MCH 31.8 pg (26.0-34.0); MCV 88.3 fL (80.0-100.0); MEAN PLATELET VOLUME 10.2 fL (7.4-10.4); NEUTROPHILS 62.1 % (40-80); RBC 4.37 10x6/uL (4.00-5.40); RDW 12.8 % (11.5-14.5); WBC 9.1 10x3/uL (4.8-10.8)
[2018-05-24 12:09] LABS: PLATELET COUNT 296 10x3/uL (130-400)
[2018-05-24 13:15] LABS: CALC OSMOLALITY 259 mosm/kg (275-300); CALCIUM 8.8 mg/dL (8.5-10.1); CHLORIDE - SERUM 92 mmol/L (98-107); CREATININE - SERUM 0.8 mg/dL (0.6-1.3); GLUCOSE 129 mg/dL (74-106); SODIUM 130 mmol/L (136-145); UREA NITROGEN 5 mg/dL (7-18); eGFR NON AFRICAN AMERICAN 81 mL/min (90-120)
[2018-05-24 13:20] LABS: POTASSIUM - SERUM 2.7 mmol/L (3.5-5.1)
--- NOTE | 2018-05-24 15:59 | NUR ---
RECEIVED PT FROM DIGITAL DATA ANALYST, PT IS DROWSY BUT AWAKENS EASILY TO VERBAL STIMULI. DENIES ANY C/O PAIN OR NAUSEA. IV TO RIGHT ARM IS PATENT AND INFUSING PER ORDERS. DRESSINGS TO BILAT GROINS ARE CDI, NO BLEEDING OR HEMATOMA NOTED. PEDAL PULSES PALPABLE BILAT. NSR, RATE 75. BP IS 133/87. HOB IS FLAT, PT AND SIGNIFICANT OTHER INSTRUCTED ON IMPORTANCE OF KEEPING HEAD FLAT TO PILLOW AND LEFT LEG STRAIGHT. CALL LIGHT IN REACH.
--- NOTE | 2018-05-24 16:11 | NUR ---
PRESCRIPTION FOR PLAVIX 75 MG ONE TAB PO DAILY #30 WTIH NO REFILLS CALLED TO PT'S PREFERRED PHARMACY, [facility] ON [address]. PT IS ALERT, DENIES ANY C/O. IS MIKE PO FLUIDS WITH NO C/O NAUSEA. DRESSINGS TO BILAT GROINS ARE CDI, PEDAL PULSES PALPABLE. HOB IS FLAT, SIGNIFICANT OTHER AT BEDSIDE. CALL LIGHT IN REACH.
--- NOTE | 2018-05-24 16:41 | NUR ---
PT RESTING WITH EYES CLOSED, DRESSINGS CDI, PULSES PALPABLE. VSS.
--- NOTE | 2018-05-24 16:58 | NUR ---
ASSISTED PT WITH USING BEDPAN, PT VOIDED LARGE AMOUNT OF CLEAR YELLOW URINE. DRESSINGS REMAIN CDI, PEDAL PULSES PALPABLE. HOB IS FLAT, VSS, AT BEDSIDE.
--- NOTE | 2018-05-24 17:55 | NUR ---
DRESSING CDI TO BILAT GROINS WITH NO BLEEDING OR HEMATOMA NOTED. PEDAL PULSES PALPABLE. PT IS ALERT AND DENIES ANY C/O. VSS, CALL LIGHT IN REACH. HOB IS FLAT.
--- NOTE | 2018-05-24 18:34 | NUR ---
HOB ELEVATED 30 DEGREES, SANDWICH AND PO FLUIDS SERVED. PT IS ALERT AND DENIES ANY C/O. DRESSINGS TO BILAT GROINS ARE CDI, AREAS SOFT AND NONTENDER. PEDAL PULSES PALPABLE. VSS, AT BEDSIDE.
--- NOTE | 2018-05-24 18:50 | NUR ---
HOB FULLY ELEVATED, DRESSINGS ARE CDI TO BILAT GROINS, PULSES PALPABLE, PT IS ALERT AND DENIES ANY C/O. VSS, RESP WITH EASE ON ROOM AIR. PT SITTING UP IN BED VISITING [facility] .
--- NOTE | 2018-05-24 19:20 | NUR ---
DRESSINGS REMAIN CDI TO BILAT GROINS, AREAS ARE SOFT AND NONTENDER. PEDAL PULSES PALPABLE. DC INSTRUCTIONS REVIEWED WITH PT AND WHO VERBALIZE UNDERSTANDING. PT VERBALIZES UNDERSTANDING OF PLAVIX PRESCRIPTION CALLED TO [facility], STATES SHE JUST HAD HER PLAVIX REFILLED AND HAS A 3 MONTH SUPPLY AT HOME. STENT CARD, EXOSEAL BOOKLET AND HOMECARE BOOKLET TO PT. IV DC'D WITH CATH INTACT AND PT IS DRESSING FOR DC TO HOME WITH ASSIST.
--- NOTE | 2018-05-24 19:33 | NUR ---
PT HAS DRESSED FOR DC TO HOME, IS ALERT AND DENIES ANY C/O. PT ESCORTED TO PRIVATE AUTO VIA WC BY NURSE WITH DRIVING HER HOME. PT HAS ALL PERSONAL BELONGINGS AND DC INSTRUCTIONS AT TIME OF DC TO HOME.
--- NOTE | 2018-06-02 12:54 | OP ---
PATIENT NAME: ALF FARRAR MEDICAL RECORD: [id number] :68 LOCATION:DLEX ADMISSION DATE: SURGEON: VANITA VILLALOBOS MD DATE OF OPERATION: 05/24/2018 PROCEDURE: Left heart catheterization plus intervention to the ramus via left femoral artery approach. CATHETERS: A 5-Salvadorean sheath, 5/4 left and right Renetta, 5/4 pig. The procedure was well tolerated, proceeded to PTCA and stenting after the procedure is finished. FINDINGS: Left ventriculography in 30-degree FELIX view - normal wall motion, normal systolic function. CORONARY ANATOMY: LEFT MAIN: Left main is free of disease. LAD: Free of disease in the diagonal system. CIRCUMFLEX: Free of disease. There is a true ramus branch with about 80% discrete stenosis in its proximal one-third. RIGHT CORONARY ARTERY: Previous stenting is actually widely patent. No evidence of restenosis. No evidence of progression of muckleshoot disease. PLAN: Intervention to the ramus momentarily. DESCRIPTION OF PROCEDURE: A 5-Salvadorean sheath was exchanged for a 6-Salvadorean sheath. A JL4 guiding catheter provided good guide catheter support followed by 300 cm Whisper wire was placed across the tightly occluded ramus down the distal portion of the vessel. Stent deployed was a 2.5 x 12 mm Integrity drug-eluting stent, up to 12 atmospheres. Final angiography shows excellent resolution of 80% stenosis, no significant residual. CHAITANYA flow was 3 throughout the procedure. AORTOFEMORAL RUNOFF: After the LV gram was performed, the pigtail catheter was withdrawn proximally to the level of the renal arteries. AFRO was performed as follows. Abdominal aorta shows no evidence of dissection, no evidence of aneurysm. RIGHT SYSTEM: Right iliac system is widely patent throughout its course. RIGHT FEMORAL SYSTEM: Acute and superficial deep, both widely patent with a 3-vessel runoff. LEFT SYSTEM: Previously placed iliac stent is widely patent with no evidence of restenosis. The left femoral system including superficial deep and common are all widely patent with 3-vessel runoff. IMPRESSION: No evidence of restenosis of the previously placed iliac stent. 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 OPERATIVE REPORT [id number] ALF FARRAR TRANSINT:[id number] Voice Confirmation ID: [id number] DOCUMENT ID: [id number] VANITA VILLALOBOS MD at 1254 CC: [id number] DICTATION DATE: 05/24/18 1521 SPORTS UMPIRE: 05/24/182046 DEP CLI 05/24/18 [facility] [address] [place] [id number]
== END 2018-05-24 19:30 | disposition home or self-care (01) ==
LOC: D.CATH 10:46
PROVIDERS: Internal Medicine Interventional Cardiology
DX: I25.10 Atherosclerotic heart disease of native coronary artery without angina pectoris (principal)
CPT/HCPCS: C9600; 93458

== ENCOUNTER → 2018-12-28 10:08 | Outpatient (CLI) | payer MEDICARE ==
[2018-05-24 11:21] VITALS: BMI 25.4
[~2018-12-28 10:08] MED LIST changes: +ATIVAN1 MG PO; +HCTZ25 MG PO; +OXYBUTYNIN CHLOR5 MG PO
--- NOTE | 2019-01-01 14:28 | EC ---
PATIENT:ALF FARRAR DATE OF SERVICE: 12/28/18 SEX: F MEDICAL RECORD: [id number] DATE OF : [birth year] LOCATION:[facility] AGE OF PATIENT: 48 ADMISSION DATE: 12/28/18 REFERRING PHYSICIAN: INTERPRETING PHYSICIAN: VANITA VILLALOBOS MD ECHOCARDIOGRAM REPORT ECHO CHARGES 4 ECHO COMPLETE Date: 12/28/18 CLINICAL DIAGNOSIS: CAD/PVD/ ASSESS LV FUNCTION AND VALVES ECHOCARDIOGRAPHIC MEASUREMENTS (adult normal given) AC root (d.<3.7cm) 2.4 cm LV Septum d (<1.2 cm> 1.1 cm Valve Excursion 1.0 cm LV Septum (systole) 1.2 cm Left Atria (s.<4.0cm> 2.6 cm LVPW d(<1.2cm) 1.1 cm RV (d.<2.3cm) 2.4 cm LVPW (sytole) 1.3 cm LV diastole(<5.6CM) 3.7 cm MV E-F(>70mm/sec) cm LV systole 2.6 cm LVOT Diameter 1.4 cm MV exc.(>10mm) cm Est.ejection fraction (50-75%) % DOPPLER: LVIT cm/sec A 98.0 cm/sec E 83.0 cm/sec LA cm/sec RVSP 18 mmHg LVOT 94 cm/sec AOP1/2T m/s Asc. Ao 148 cm/sec RVOT 72 cm/sec RA cm/sec PA 100 cm/sec AV Gradient Peak 8.79 mmHg AV Mean 4.24 mmHg AV Area 2.0 cm MV Gradient Peak 4.48 mmHg MV Mean 2.20 mmHg MV Area cm COMMENTS: Seismometer Operator: 2 DARIUS DAVID Stunner And Shackler: 3 Dr. Vidal TAPE# PACS Pericardial Effusion N DATE OF SERVICE: Adequate 2D, color flow, spectral Doppler, and M-mode. No LVH. LV internal dimensions are normal. Wall motion is normal. EF is greater than or equal to 55%. Aortic valve is tricuspid. No evidence of stenosis by Doppler interrogation. Left atrium is normal at 2.6 cm. Mitral valve shows no prolapse. Trace MR. Right-sided chambers grossly normal. Trace TR. TRANSINT:[id number] Voice Confirmation ID: [id number] DOCUMENT ID: [id number] ECHOCARDIOGRAM REPORT [id number] ALF FARRAR,VANITA Higgins MD at 1428 CC: [id number] DICTATION DATE: 01/01/19 1314 SOCK LINER: 01/01/19 1333 DEP CLI 12/28/18 [place] [id number] [place] [id number]
== END | disposition home or self-care (01) ==
LOC: D.HCCARDIO 12-21 09:30
PROVIDERS: ATTEND Internal Medicine Interventional Cardiology
DX: I25.10 Atherosclerotic heart disease of native coronary artery without angina pectoris (principal)

== ENCOUNTER 2019-01-28 08:00 | Outpatient (CLI) | payer MEDICARE ==
[2018-05-24 11:21] VITALS: BMI 25.4
== END 2019-01-28 23:59 | disposition home or self-care (01) ==
LOC: D.MAMMO 08:00
PROVIDERS: ATTEND Family Medicine
DX: Z12.31 Encounter for screening mammogram for malignant neoplasm of breast (principal)

== ENCOUNTER → 2020-01-07 11:23 | Outpatient (CLI) | payer MEDICARE ==
[2018-05-24 11:21] VITALS: BMI 25.4
--- NOTE | 2020-01-08 09:11 | EC ---
PATIENT:ALF FARRAR DATE OF SERVICE: 01/07/20 SEX: F MEDICAL RECORD: [id number] DATE OF : [birth year] LOCATION:D.[facility] AGE OF PATIENT: 49 ADMISSION DATE: 01/07/20 REFERRING PHYSICIAN: INTERPRETING PHYSICIAN: VANITA VILLALOBOS MD ECHOCARDIOGRAM REPORT ECHO CHARGES 4 ECHO COMPLETE Date: 01/07/20 CLINICAL DIAGNOSIS: CAD/ASSESS EF AND VALVES HX OF COPD/HTN ECHOCARDIOGRAPHIC MEASUREMENTS (adult normal given) AC root (d.<3.7cm) 3.1 cm LV Septum d (<1.2 cm> 1.1 cm Valve Excursion 1.3 cm LV Septum (systole) 1.3 cm Left Atria (s.<4.0cm> 1.8 cm LVPW d(<1.2cm) 0.90 cm RV (d.<2.3cm) 3.0 cm LVPW (sytole) 1.3 cm LV diastole(<5.6CM) 3.3 cm MV E-F(>70mm/sec) cm LV systole 2.3 cm LVOT Diameter 1.5 cm MV exc.(>10mm) 1.4 cm Est.ejection fraction (50-75%) % DOPPLER: LVIT cm/sec A 87.0 cm/sec E 91.0 cm/sec LA cm/sec RVSP 17 mmHg LVOT 94 cm/sec AOP1/2T m/s Asc. Ao 157 cm/sec RVOT 65 cm/sec RA cm/sec PA 100 cm/sec AV Gradient Peak 9.84 mmHg AV Mean 4.41 mmHg AV Area 1.1 cm MV Gradient Peak 3.73 mmHg MV Mean 2.00 mmHg MV Area cm COMMENTS: Conference Service Coordinator: 2 DARIUS DAVID Fish Warden: 3 Dr. Vidal TAPE# PACS Pericardial Effusion N DATE OF SERVICE: 01/07/2020 Adequate 2D, color flow imaging, spectral Doppler, and M-Mode. No LVH. LV internal dimensions are normal. Wall motion normal. EF greater than or equal to 55%. Aortic valve is tricuspid. No evidence of stenosis by Doppler interrogation. Left atrium is normal. Mitral valve shows no prolapse. Trivial MR. Right-sided chambers are grossly normal. Trace to mild TR. TRANSINT:[id number] Voice Confirmation ID: [id number] DOCUMENT ID: [id number] ECHOCARDIOGRAM REPORT [id number] ALF FARRAR,VANITA Higgins MD at 0911 CC: [id number] DICTATION DATE: 01/07/20 1506 FURNITURE MOVER HELPER: 01/07/20 2258 DEP CLI 01/07/20 [place] [id number] [place] [id number]
== END | disposition home or self-care (01) ==
LOC: D.HCCECHO 11:23
PROVIDERS: ATTEND Internal Medicine Interventional Cardiology
DX: I25.10 Atherosclerotic heart disease of native coronary artery without angina pectoris (principal)

== ENCOUNTER → 2020-01-30 10:30 | Outpatient (CLI) | payer MEDICARE ==
[2018-05-24 11:21] VITALS: BMI 25.4
== END | disposition home or self-care (01) ==
LOC: D.MAMMO 10:30
PROVIDERS: ATTEND Family Medicine
DX: Z12.31 Encounter for screening mammogram for malignant neoplasm of breast (principal)

== ENCOUNTER → 2020-02-12 08:42 | Outpatient (CLI) | payer MEDICARE ==
[2018-05-24 11:21] VITALS: BMI 25.4
== END | disposition home or self-care (01) ==
LOC: D.HCCARDIO 08:42
PROVIDERS: ATTEND Internal Medicine Cardiovascular Disease
DX: I20.9 Angina pectoris, unspecified (principal)

== ENCOUNTER 2020-08-05 12:04 | Inpatient (IN) | payer MEDICARE ==
[~2020-08-05] VITALS: Ht 152.4 cm; Wt 61.2 kg
[2020-08-14] MEDS ORDERED: PROTONIX40 MG PO (10:09)
[2020-08-14 11:14] LABS: BASOPHILS 0.3 % (0-2); CALC OSMOLALITY 262 mosm/kg (275-300); CARBON DIOXIDE 30.1 mmol/L (21.0-32.0); CHLORIDE - SERUM 96 mmol/L (98-107); CREATININE - SERUM 0.7 mg/dL (0.6-1.3); EOSINOPHILS 1.7 % (0-7); GLUCOSE 91 mg/dL (74-106); HEMATOCRIT 39.9 % (36.0-48.0); HEMOGLOBIN 13.7 g/dL (12-16); IMMATURE GRANULOCYTES 0.5 % (0-5); LYMPHOCYTE ABS# 1.41 10x3/uL (1.18-3.74); LYMPHOCYTES 23.8 % (15-50); MCH 29.9 pg (26.0-34.0); MCHC 34.3 g/dL (31.0-37.0); MCV 87.1 fL (80.0-100.0); MEAN PLATELET VOLUME 10.1 fL (7.4-10.4); MONOCYTES 9.3 % (2-11); NEUTROPHIL ABS# 3.81 10x3/uL (1.56-6.13); NEUTROPHILS 64.4 % (40-80); PLATELET COUNT 273 10x3/uL (130-400); POTASSIUM - SERUM 3.3 mmol/L (3.5-5.1); RBC 4.58 10x6/uL (4.00-5.40); SODIUM 133 mmol/L (136-145); UREA NITROGEN 4 mg/dL (7-18); WBC 5.9 10x3/uL (4.8-10.8); eGFR NON AFRICAN AMERICAN > 90 mL/min (90-120)
[2020-08-14 11:19] LABS: INR 1.01 (0.85-1.17); PROTIME 12.3 SECONDS (11.6-15.0)
[2020-08-14 11:20] LABS: APTT 27.9 SECONDS (22.8-39.4)
[2020-08-18] VITALS (16 sets, daily range): BP systolic 94–123; BP diastolic 44–68; BMI 26.4
--- NOTE | 2020-08-18 07:10 | NUR ---
0710 PT IS A DIFFICULT STICK. 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 PT STATES SHE HAS REQUIRED A PICC LINE IN PAST HOSPITALIZATIONS. RENATO EASTMAN IS USING ULTRASOUND TO LOCATE AN IV SITE FOR FLUIDS AND MEDICATIONS.
--- NOTE | 2020-08-18 07:31 | NUR ---
0725 IV STARTED IN LEFT AC USING ULTRASOUND MACHINE PER RENATO EASTMAN. TOTAL OF 3 ATTEMPTS TO GET IV STARTED.
--- NOTE | 2020-08-18 10:09 | NUR ---
PT AWAKENING, OPA REMOVED
--- NOTE | 2020-08-18 20:00 | NUR ---
PT SITTING UP IN BED WITHOUT DISTRESS, AOX4. AT BEDSIDE. NEW IV RESITED TO RIGHT UPPER ARM X1 ATTEMPT. IV LEFT AC INFILTATED. REMOVED WITH CATH INTACT. ABD DRESSING WITH SMALL AMOUNT OF SHADOWING UNDERNEATH THAT IS MARKED, NO NEW DRAINAGE. SAN IN PLACE. PROVIDED ICE CHIPS. STATES PAIN 10/08 TO ABD. SPLINTING ABD WITH PILLOW WHILE COUGHING AND USING INCENTIVE SPIROMETER DIRECTED. SCDS ON BILAT. USING DILAUDID ANNEALING OPERATOR FOR PAIN. DENIES OTHER NEEDS AT THIS TIME. CL IN REACH
[2020-08-19] VITALS: BP 107/67
[2020-08-19 04:00] VITALS: BP 92/55
--- NOTE | 2020-08-19 06:15 | NUR ---
SAN CARE PROVIDED AT THIS TIME
[2020-08-19 07:00] LABS: BASOPHILS 0.1 % (0-2); EOSINOPHILS 0.1 % (0-7); HEMOGLOBIN 11.4 g/dL (12-16); IMMATURE GRANULOCYTES 0.1 % (0-5); LYMPHOCYTE ABS# 1.53 10x3/uL (1.18-3.74); LYMPHOCYTES 20.7 % (15-50); MCH 29.7 pg (26.0-34.0); MCHC 33.5 g/dL (31.0-37.0); MCV 88.5 fL (80.0-100.0); MEAN PLATELET VOLUME 10.3 fL (7.4-10.4); MONOCYTES 7.4 % (2-11); NEUTROPHIL ABS# 5.29 10x3/uL (1.56-6.13); NEUTROPHILS 71.6 % (40-80); PLATELET COUNT 223 10x3/uL (130-400); RBC 3.84 10x6/uL (4.00-5.40); RDW 14.1 % (11.5-14.5); WBC 7.4 10x3/uL (4.8-10.8)
[2020-08-19 07:07] LABS: CALC OSMOLALITY 272 mosm/kg (275-300); CALCIUM 8.9 mg/dL (8.5-10.1); CARBON DIOXIDE 29.1 mmol/L (21.0-32.0); CHLORIDE - SERUM 101 mmol/L (98-107); CREATININE - SERUM 0.7 mg/dL (0.6-1.3); GLUCOSE 81 mg/dL (74-106); POTASSIUM - SERUM 3.1 mmol/L (3.5-5.1); SODIUM 138 mmol/L (136-145); UREA NITROGEN 6 mg/dL (7-18); eGFR NON AFRICAN AMERICAN > 90 mL/min (90-120)
[2020-08-19 08:29] VITALS: BP 94/45
--- NOTE | 2020-08-19 10:12 | NUR ---
REMOVING PATIENT SAN CATHETER,PATIENT STATES SHE IS UPSET HER PATCH WAS TAKEN AWAY, EXPLAINED THAT IT WILL CAUSE MORE HARM THAN BENEFIT FOR HER. 2ND BAG OF K+ TO HANG, WILL GET PATIENT UP TO AMBULATE
--- NOTE | 2020-08-19 11:22 | NUR ---
PATIENT IV IN RT UPPER ARM HURTS PER PT, SITE IS RED AND SWOLLEN, LOOKED FOR ANOTHER SITE AND UNABLE TO FIND ANY. ICU NURSE TO COME AND LOOK. CONTINUE WITH PLAN OF CARE
[2020-08-19 12:04] VITALS: BP 118/64
--- NOTE | 2020-08-19 13:55 | NUR ---
PATIENT REPORTS HAVING A SMALL BM WHILE PASSING GAS, ENCOURAGED PATIENT TO CONTINUE AMBULATING. FRINED AT BEDSIDE CONTINUE WITH PLAN OF CARE
[2020-08-19 15:51] VITALS: Ht 152.4 cm; Wt 61.2 kg
--- NOTE | 2020-08-19 17:00 | NUR ---
PATIENT IS AMBULATING ON UNIT, HAS AMBULATED AT LEAST 3 TIMES AROUND UNIT SINCE NOON. APTIENT STATES SHE AHS PASSED GAS AT LEAST 3 TIMES AND HAD A VERY SMALL BOWEL MOVEMENT. ASKED TO BE ABLE TO EAT SOMETHING, SAW AND SPOKE TO CAR CONDITIONER WHO STATED WE CAN START PATIENT ON CLD BUT ORDER WAS NOT PLACED, SINCE I DID NOT SEE THE BM I DON'T FEEL COMFORTABLE STARTING A CLD. WILL CONTINUE WITH PLAN OF CARE
[2020-08-19 17:50] VITALS: BP 113/69
--- NOTE | 2020-08-19 19:13 | NUR ---
I have reviewed this patient and I concur with the Shift Assessment completed by the Licensed Practical Nurse today this shift.
[2020-08-19 20:00] VITALS: BP 102/65
--- NOTE | 2020-08-19 20:00 | NUR ---
PT SITTING UP IN BED WITHOUT DISTRESS, JUST CAME BACK TO ROOM AFTER AMBULATING AROUND UNIT. STATES SOME ACHING PAIN TO ABD, 09/07. IV LEFT CHEST WITHOUT REDNESS OR SWELLING, SITE CDI. INFUSING NS @ 100 WITH DILAUDID INTERNET RETAILER. DENIES NEEDS AT THIS TIME. CL IN REACH
[2020-08-20] VITALS: BP 141/76
[2020-08-20 04:00] VITALS: BP 108/50
[2020-08-20 06:27] LABS: BASOPHILS 0.3 % (0-2); EOSINOPHILS 0.5 % (0-7); HEMATOCRIT 32.7 % (36.0-48.0); IMMATURE GRANULOCYTES 0.5 % (0-5); LYMPHOCYTE ABS# 1.24 10x3/uL (1.18-3.74); LYMPHOCYTES 20.1 % (15-50); MCHC 33.6 g/dL (31.0-37.0); MCV 89.1 fL (80.0-100.0); MONOCYTES 6.3 % (2-11); NEUTROPHIL ABS# 4.47 10x3/uL (1.56-6.13); NEUTROPHILS 72.3 % (40-80); PLATELET COUNT 240 10x3/uL (130-400); RBC 3.67 10x6/uL (4.00-5.40); RDW 14.3 % (11.5-14.5); WBC 6.2 10x3/uL (4.8-10.8)
[2020-08-20 06:48] LABS: CALC OSMOLALITY 271 mosm/kg (275-300); CALCIUM 8.3 mg/dL (8.5-10.1); CARBON DIOXIDE 25.6 mmol/L (21.0-32.0); CHLORIDE - SERUM 102 mmol/L (98-107); GLUCOSE 88 mg/dL (74-106); POTASSIUM - SERUM 3.4 mmol/L (3.5-5.1); SODIUM 138 mmol/L (136-145); UREA NITROGEN 5 mg/dL (7-18)
[2020-08-20 06:49] LABS: CREATININE - SERUM 0.5 mg/dL (0.6-1.3); eGFR NON AFRICAN AMERICAN > 90 mL/min (90-120)
--- NOTE | 2020-08-20 07:44 | NUR ---
ASSISTED PATIENT TO RESTROOM, STATES SHE IS STILL BVERY SORE TODAY, EXPLAINED SHE WILL BE, DRESSING CDI. NO SIGNS OF DISTRESS. CONTINUE WITH PLAN OF CARE
[2020-08-20 09:12] VITALS: BP 113/61
--- NOTE | 2020-08-20 11:26 | NUR ---
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 CONTINUE WITH PLAN OF CARE
[2020-08-20 13:46] VITALS: BP 113/67
--- NOTE | 2020-08-20 14:43 | NUR ---
I have reviewed this patient and I concur with the Shift Assessment completed by the Licensed Practical Nurse today this shift.
[2020-08-20 17:33] VITALS: BP 113/62
[2020-08-21 06:21] LABS: BASOPHILS 0.3 % (0-2); EOSINOPHILS 0.9 % (0-7); HEMATOCRIT 31.7 % (36.0-48.0); HEMOGLOBIN 10.7 g/dL (12-16); IMMATURE GRANULOCYTES 0.2 % (0-5); LYMPHOCYTE ABS# 1.34 10x3/uL (1.18-3.74); LYMPHOCYTES 20.9 % (15-50); MCH 29.6 pg (26.0-34.0); MCHC 33.8 g/dL (31.0-37.0); MCV 87.6 fL (80.0-100.0); MEAN PLATELET VOLUME 10.4 fL (7.4-10.4); MONOCYTES 6.9 % (2-11); NEUTROPHIL ABS# 4.54 10x3/uL (1.56-6.13); NEUTROPHILS 70.8 % (40-80); PLATELET COUNT 246 10x3/uL (130-400); RBC 3.62 10x6/uL (4.00-5.40); RDW 14.1 % (11.5-14.5); WBC 6.4 10x3/uL (4.8-10.8)
[2020-08-21 06:38] LABS: CALCIUM 8.8 mg/dL (8.5-10.1); CARBON DIOXIDE 28.5 mmol/L (21.0-32.0); CHLORIDE - SERUM 101 mmol/L (98-107); CREATININE - SERUM 0.6 mg/dL (0.6-1.3); GLUCOSE 90 mg/dL (74-106); SODIUM 138 mmol/L (136-145); eGFR NON AFRICAN AMERICAN > 90 mL/min (90-120)
[2020-08-21 07:09] LABS: CALC OSMOLALITY 272 mosm/kg (275-300); UREA NITROGEN 3 mg/dL (7-18)
[2020-08-21 07:12] LABS: POTASSIUM - SERUM 2.5 mmol/L (3.5-5.1)
--- NOTE | 2020-08-21 07:17 | NUR ---
PATIENT UP AD [facility]ITTNEY. MEDICATED FOR PAIN.
[2020-08-21] MEDS ORDERED: HYDROCODONE-AC1 EAC2 PO (09:27)
[2020-08-21 10:42] VITALS: BP 134/67
--- NOTE | 2020-08-21 13:31 | OP ---
PATIENT NAME: ALF FARRAR MEDICAL RECORD: [id number] :68 LOCATION:[id number] ADMISSION DATE:08/18/20 SURGEON: MURALI RUEDA MD DATE OF OPERATION: 08/18/2020 PREOPERATIVE DIAGNOSES: 1. Right colon mass. 2. Coronary artery disease. 3. Peripheral vascular disease. 4. Chronic obstructive pulmonary disease. 5. Tobacco dependence syndrome. POSTOPERATIVE DIAGNOSES: 1. Right colon mass. 2. Coronary artery disease. 3. Peripheral vascular disease. 4. Chronic obstructive pulmonary disease. 5. Tobacco dependence syndrome. PROCEDURE: Hand-assisted laparoscopic right hemicolectomy. SURGEON: Murali Rueda MD DESCRIPTION OF PROCEDURE: The patient's abdomen was prepped and draped in sterile fashion. A skin incision was made around the patient's umbilicus and electrocautery was used to dissect through the subcutaneous tissues and fascia until we entered the abdominal cavity. A Gelport was then inserted with a 5-mm trocar within it. After insufflation was obtained, we placed a 5-mm trocar in the epigastrium and another 5-mm trocar was placed in the right subcostal region. The patient's right colon was then mobilized medially by taking down the white line of Toldt using electrocautery. We came through the avascular plane under the right colon and circled around the hepatic flexure. At this point, we could see the tattooing that was present just proximal to the hepatic flexure and the ascending colon. We continued our dissection through the fatty tissue overlying the transverse colon proximally, taking down most of the thin adhesions using electrocautery. We eventually dissected up the proximal transverse colon off of the second portion of the duodenum and at this point we had good mobilization of the tissue and it was eviscerated through the wound protector of the hand port. The omentum was taken off of the proximal transverse colon using clamp and tie technique with 3-0 silks. I then transected the distal small bowel about 5 cm from the terminal ileum using a 55 blue load LEXI stapler. The transverse colon was transected proximally using a 55 blue load LEXI stapler. The mesentery of the right colon was then taken down using sequential clamp and tie technique with multiple 3-0 silks. Eventually, the right colon was completely freed up and sent off for permanent specimen. The mass was palpable in the middle of the specimen. An enterocolonic anastomosis was then performed by making small enterotomies in both loops of bowel and then firing a 55 blue load LEXI stapler between the 2 openings. The enterotomies were then closed with a 30 blue load TA stapler. We had a good patent opening present at the enterocolonic anastomosis. I then oversewed the staple lines using Lemberted 3-0 silks. The bowel and omentum was then placed back into the abdominal cavity. We reinsufflated the abdomen and irrigated out thoroughly with normal saline. There was no sign of any active bleeding. The remainder of the abdomen looked normal with no signs of any metastatic lesions. The ports and insufflation were then removed. The midline fascia was closed OPERATIVE REPORT [id number] ALF FARRAR with running #1 looped PDS times 2. We irrigated out the wounds and then infused 10 mL of 0.25% Marcaine with epinephrine. The subcutaneous tissues were reapproximated with interrupted 3-0 Vicryl and the skin incisions were closed with erica. COMPLICATIONS: None. CONDITION: Stable. ANESTHESIA: General endotracheal and local. BLOOD LOSS: Minimal. TRANSINT:[id number] Voice Confirmation ID: [id number] DOCUMENT ID: [id number] cc: ALINA Puckett CHRISTIAN MD at 1331 CC: RAMIRO RAMESH APN and KACI AMBROSIO DO [id number] DICTATION DATE: 08/18/2045 CASCADE OPERATOR: 08/18/20 0958 ADM IN [facility] [address] [place] [address]
--- NOTE | 2020-08-21 13:55 | MORECARE ---
CASE MANAGEMENT DISCHARGE SUMMARY PATIENT: ALF FARRAR UNIT: [id number] ADM DATE: 08/18/20 AGE: 49 : 68 SEX: F ROOM/BED: [facility] AUTHOR: ZURDODOC PHYSICIAN: REFERRING PHYSICIAN: HARRIS RUEDA MD DATE OF SERVICE: 08/21/20 Case Management Discharge Planning Summary DCP REVIEW SUMMARY ANTICIPATED D/C DATE: EXPECTED LOS : CASE STATUS: DCP Initiated INITIAL REVIEW: 08/18/2020 INITIAL REVIEWER: Suzie Braun FINAL DISCHARGE DISPOSITION: : FINAL REVIEWER: FINAL REVIEW DATE: DCP Focus Questions & Answers QUESTION: ANSWER : PATIENT: ALF FARRAR ENCOUNTER: [id number] MEDICAL RECORD#: [id number] ADMISSION DATE: 08/18/2020 DISCHARGE DATE: ATTENDING MD: HARRIS CONNORS : AGE: 49 MARITAL STATUS: M DC PLAN ID: [id number] FACILITY: [facility] PRINTED ON: 08/21/20 13:55 CT All edits/amendments must be made on the electronic document DICTATION DATE: 08/21/20 135 MANUFACTURER'S REPRESENTATIVE: DM 08/21/20 1355 RPT#: [id number] DC DATE: STATUS: ADM IN [facility] [address] [place] [address] END OF REPORT
--- NOTE | 2020-08-21 14:10 | MORECARE ---
CASE MANAGEMENT DISCHARGE SUMMARY PATIENT: ALF FARRAR UNIT: [id number] ADM DATE: 08/18/20 AGE: 49 : 68 SEX: F ROOM/BED: D.2235 AUTHOR: ZURDO,DOC PHYSICIAN: REFERRING PHYSICIAN: HARRIS RUEDA MD DATE OF SERVICE: 08/21/20 Case Management Discharge Planning Summary COMMENTS ENTERED DATE: 08/21/20 13:51 CT COMMENT TYPE: Discharge Planning REVIEWER: Suzie Braun CM met with patient at bedside after obtaining verbal consent. CM discussed availability / needs of home health, REHAB and medical equipment. Patient states no medical equipment at home and does not need any. PCP Miramontes at [facility], pharmacy is [facility] on [address] at bedside and he will transport her home. IMM signed and placed on chart. Patient denies need for home health, rehab or medical equipment. CM to follow and assist as needed. DCP REVIEW SUMMARY ANTICIPATED D/C DATE: EXPECTED LOS : CASE STATUS: DCP Initiated INITIAL REVIEW: 08/18/2020 INITIAL REVIEWER: Suzie Braun FINAL DISCHARGE DISPOSITION: : FINAL REVIEWER: FINAL REVIEW DATE: DCP Focus Questions & Answers QUESTION: ANSWER : PATIENT: ALF FARRAR ENCOUNTER: [id number] MEDICAL RECORD#: [id number] ADMISSION DATE: 08/18/2020 DISCHARGE DATE: ATTENDING MD: HARRIS CONNORS : AGE: 49 MARITAL STATUS: M DC PLAN ID: [id number] FACILITY: [facility] PRINTED ON: 08/21/20 14:09 CT All edits/amendments must be made on the electronic document DICTATION DATE: 08/21/20 140 ASSEMBLY LINE INSPECTOR: DM 08/21/20 1409 RPT#: [id number] DC DATE: STATUS: ADM IN [facility] [address] [place] [address] END OF REPORT
--- NOTE | 2020-08-24 17:03 | MORECARE ---
CASE MANAGEMENT DISCHARGE SUMMARY PATIENT: ALF FARRAR UNIT: [id number] ADM DATE: 08/18/20 AGE: 49 : 68 SEX: F ROOM/BED: D[facility] AUTHOR: ZURDO,DOC PHYSICIAN: REFERRING PHYSICIAN: HARRIS RUEDA MD DATE OF SERVICE: 08/24/20 Case Management Discharge Planning Summary COMMENTS ENTERED DATE: 08/21/20 13:51 CT COMMENT TYPE: Discharge Planning REVIEWER: Suzie Braun CM met with patient at bedside after obtaining verbal consent. CM discussed availability / needs of home health, REHAB and medical equipment. Patient states no medical equipment at home and does not need any. PCP Miramontes at [facility], pharmacy is [facility] on [address] at bedside and he will transport her home. IMM signed and placed on chart. Patient denies need for home health, rehab or medical equipment. CM to follow and assist as needed. DCP REVIEW SUMMARY ANTICIPATED D/C DATE: EXPECTED LOS : CASE STATUS: DCP Initiated INITIAL REVIEW: 08/18/2020 INITIAL REVIEWER: Suzie Braun FINAL DISCHARGE DISPOSITION: : FINAL REVIEWER: FINAL REVIEW DATE: DCP Focus Questions & Answers QUESTION: ANSWER : PATIENT: ALF FARRAR ENCOUNTER: [id number] MEDICAL RECORD#: [id number] ADMISSION DATE: 08/18/2020 DISCHARGE DATE: 08/21/2020 ATTENDING MD: HARRIS CONNORS : AGE: 49 MARITAL STATUS: M DC PLAN ID: [id number] FACILITY: [facility] PRINTED ON: 08/24/20 17:03 CT All edits/amendments must be made on the electronic document DICTATION DATE: 08/24/201702 STENCIL MACHINE OPERATOR: DIEGO 08/24/201702 RPT#: [id number] DC DATE:08/21/20 STATUS: DIS IN [facility] [address] [place] [address] END OF REPORT
== END 2020-08-21 14:19 | disposition home or self-care (01) | DRG 331 ==
LOC: D.SDCHOLD 08-18 06:00 → D.MS 08-18 06:00 → D.SDCHOLD 08-18 08:00 → D.MS 08-18 09:45
PROVIDERS: Anesthesiology; ADMIT Surgery; ATTEND Surgery
PROC: 0DTF0ZZ Resection of Right Large Intestine, Open Approach (ICD-10-PCS; principal; 2020-08-18 08:00)
DX: D49.0 Neoplasm of unspecified behavior of digestive system (principal); I25.10 Atherosclerotic heart disease of native coronary artery without angina pectoris; J44.9 Chronic obstructive pulmonary disease, unspecified; F17.200 Nicotine dependence, unspecified, uncomplicated; I73.9 Peripheral vascular disease, unspecified